=== PATIENT | male | born 1990 | race African-American/Black ===

== ENCOUNTER 2018-09-29 03:43 | Emergency (ER) | payer SELFPAY ==
--- NOTE | 2018-09-29 03:50 | ED Physician Documentation ---
General Adult - HISTORIAN Historian: patient - PAST HX Allergies/Adverse Reactions: Allergies Allergy/AdvReac Type Severity Reaction Status Date / Time Penicillins Allergy Unverified 01/24/18 11:40
[2018-09-29 04:23] VITALS: BP 158/78
== END 2018-09-29 03:55 | disposition left against medical advice (07) ==
LOC: ED 03:43
DX: Z53.21 Procedure and treatment not carried out due to patient leaving prior to being seen by health care provider (principal)